=== PATIENT | male | born 1980 | race American Indian/Alaskan Native ===

== ENCOUNTER 2018-05-11 09:07 | Emergency (ER) | payer OTHER ==
[2018-05-11 09:27] VITALS: RESP 18; TEMP 98.7; O2SAT 99
--- NOTE | 2018-05-11 09:36 | ED PDOC ---
Arrival/HPI - General Chief Complaint: Upper Extremity Problem/Injury Time Seen by Provider: 05/11/18 09:31 Historian: Patient - History of Present Illness Narrative History of Present Illness (Text): 05/11/18 09:31 38 y/o male, no significant pmh, nkda, last tetanus doesn't remember, c/o rt. hand 2nd digit pain and swelling x 2 weeks. Pt. stated that he was pinch by metal plier on the rt. hand 2nd digit about 2 weeks ago, sustained rt. hand 2nd digit wound, worsening pain and swelling on the rt. hand 2nd digit, no fever or chills, no night sweat, no rash, no numbness or tingling, no palpitation, no other medical or psychological complaints. Past Medical History - Provider Review Nursing Documentation Reviewed: Yes - Infectious Disease Hx of Infectious Diseases: None - Psychiatric Hx Substance Use: Yes - Anesthesia Hx Anesthesia: No Family/Social History - Physician Review Nursing Documentation Reviewed: Yes Family/Social History: Unknown Family HX Smoking Status: Current Some Days Smoker Hx Alcohol Use: No Hx Substance Use: Yes Substance used: marijuana Allergies/Home Meds Allergies/Adverse Reactions: Allergies seasonal Allergy (Uncoded 05/11/18 09:27) CONGESTION Review of Systems - Review of Systems Constitutional: absent: Fatigue, Fevers Eyes: absent: Vision Changes ENT: absent: Hearing Changes Respiratory: absent: SOB, Cough Cardiovascular: absent: Chest Pain Gastrointestinal: absent: Abdominal Pain, Nausea, Vomiting Musculoskeletal: Arthralgias, Joint Swelling. absent: Back Pain, Neck Pain, Myalgias Skin: Abscess, Cellulitis. absent: Rash, Pruritis, Skin Lesions, Laceration, Ulcer Physical Exam Vital Signs Reviewed: Yes Vital Signs Temp Pulse Resp BP Pulse Ox 05/11/18 09:22 98.7 F 82 18 121/70 99 Temperature: Afebrile Blood Pressure: Normal Pulse: Regular Respiratory Rate: Normal Appearance: Positive for: Well-Appearing, Non-Toxic, Comfortable Pain Distress: Moderate Mental Status: Positive for: Alert and Oriented X 3 - Systems Exam Head: Present: Atraumatic, Normocephalic Pupils: Present: PERRL Extroacular Muscles: Present: EOMI Conjunctiva: Present: Normal Mouth: Present: Moist Mucous Membranes Neck: Present: Normal Range of Motion Respiratory/Chest: Present: Clear to Auscultation, Good Air Exchange. No: Respiratory Distress, Accessory Muscle Use Cardiovascular: Present: Regular Rate and Rhythm, Normal S1, S2. No: Murmurs Abdomen: No: Tenderness, Distention, Peritoneal Signs Back: Present: Normal Inspection Upper Extremity: Present: Normal Inspection, Other (Rt. hand 2nd digit: moderate swelling surround in the PIPJ, lateral aspect visible healed wound approx. 0.5cm diameter with swelling hardness and mild skin abscess approx. 2cm x 1cm with skin breaking noted with mild opening and draining abscess noted on the lateral aspect with hardened tissue, negative karnival signs, painful to flex the PIPJ but able to flex 75 percent, no limitation on extension, sensation intact, motor 5/5, +radial pulse, capillary refill< 2 seconds, neurovascular intact, there is no flexor or extensor tendon tenderness noted, negative karnival sign at this time. ). No: Cyanosis, Edema Lower Extremity: Present: Normal Inspection. No: Edema Neurological: Present: GCS=15, CN II-XII Intact, Speech Normal Skin: Present: Warm, Dry, Normal Color. No: Rashes Psychiatric: Present: Alert, Oriented x 3, Normal Insight, Normal Concentration Medical Decision Making ED Course and Treatment: 05/11/18 09:46 -labs/blood culture -CT RUE r/o deep structure abscess -IV vancomcyin/zosyn/toradol, tdap -wound irrigate with saline, clean betadine, bacitracin and gauze dressing -observe and reassess 05/11/18 12:36 -CT RUE: There is an approximately 4.1 x 1.25 cm elliptical shaped soft tissue density up within the soft tissues adjacent to the radial margin of the proximal phalanx 2nd digit extending distally just distal to the PIP joint. Findings consistent with a phlegmon. No definitive drainable fluid collection seen at this time. No obvious cortical destructive changes to suggest osteomyelitis however early osteomyelitis cannot be completely excluded based on this exam. -Labs are non-significant -I recommend the patient for admission for IV antibiotic and MRI with hand specialist/orthopedic evaluation but he refused, risks and benefits explained, pt. still wishes sign out against medical advice. -I will flush the wound superficial abscess for the patient as abscess is embedded in the skin. -Sensation intact, motor 5/5, wound irrigated with normal saline 1000cc, clean with Betadine, sterile procedure as usual, no anesthetic use, approx. 1cc of purulant yellow color abscess drained out from the dirty wound and swelling decreased, feels much better,hemostasis obtained, bacitracin apply, gauze dressing, sensation intact, motor 5/5, minimal blood loss, pt. tolerated the procedure well with no complication. Pain decreased and pt. feel much better. AMA ER The patient refuses to stay in the Emergency Room (ER) to continue the care and wishes to leave the emergency department against my medical advice. Patient was told that staying in the ER is necessary and a full explanation of the reasons why was given, and understood by the patient with alert and oriented x4. The risk of leaving were explained in laymans term and including but not limited to tenosynovitis, osteomylitis, organ failure, pain, worsening of condition, permanent disability and from an undiagnosed or untreated condition. The patient accepts these risks, and is in my judgment is competent and capable of understanding the clinical situation and explanation of the risk of leaving. The patient is able to verbally repeated me back the above explained risks and benefits back to me, and verbally expressed understanding. Patient was given the opportunity to ask questions and change mind. The patient was instructed regarding the best care for the present symptoms, and to follow up as soon as possible with the primary care doctor including specialist or return to the emergency department at any time for continuing care. You sign out against medical advice and told to stay in the ER for admission for IV antibiotic and further evaluation including orthopedic evaluation/hand specialist. you are given keflex, bactrim ds, motrin which is not the optimal care (as you declined). Follow up with an orthopedic/hand specialist and pmd within 24 hours, return to the ER for any new or worsening signs or symptoms. - Lab Interpretations Lab Results: 05/11/18 10:00 05/11/18 10:00 Lab Results 05/11/18 10:00: WBC 4.5, RBC 4.31, Hgb 14.3, Hct 41.2 L, MCV 95.6, MCH 33.2, MCHC 34.7, RDW 11.9, Plt Count 158, MPV 11.6 H, Gran % 52.3, Lymph % (Auto) 34.7 , [place] % (Auto) 9.7 H, Eos % (Auto) 2.9, Baso % (Auto) 0.4, Gran # 2.37, Lymph # (Auto) 1.6, [place] # (Auto) 0.4, Eos # (Auto) 0.1, Baso # (Auto) 0.02 05/11/18 10:00: Sodium 141, Potassium 4.5, Chloride 102, Carbon Dioxide 28, Anion Gap 15, BUN 15, Creatinine 0.8, Est GFR ( Amer) > 60, Est GFR (Non- Af Amer) > 60, Random Glucose 85, Calcium 9.6, Magnesium 2.0, Total Bilirubin 0.7, AST 28, ALT 29, Alkaline Phosphatase 61, Total Protein 7.6, Albumin 4.7, Globulin 2.9, Albumin/Globulin Ratio 1.6 I have reviewed the lab results: Yes - RAD Interpretation Radiology Orders: 05/11/18 09:37 EXT UPPER WITH CONTRAST RIGHT [CT] Stat HISTORY: rt. hand 2nd digit, plier injury x 2 weeks, abscess? COMPARISON: None available the TECHNIQUE: Contiguous helical/ transaxial sections of the right hand were obtained. Coronal and sagittal reformats were generated. This CT exam was performed using one or more of the following dose reduction techniques: Automated exposure control, adjustment of the mA and/or kV according to patient size, and/or use of iterative reconstruction technique. Radiation dose: Total DLP = 218.19 mGy-cm FINDINGS: BONES: No evidence of acute fracture nor dislocation. The osseous structures appear intact. No obvious cortical destructive changes 2nd digit. The remaining osseous structures also intact without cortical destructive changes LEFT HIP JOINT: Joint spaces preserved. No evidence of dislocation. No significant degenerative osteoarthritis. SOFT TISSUES: There is an elliptical shaped soft tissue density within the soft tissues adjacent to the radial margin proximal phalanx 2nd digit extending distally to suggest distal to the PIP joint. This most likely represents a large phlegmon measuring approximately 4.1 x 1.25 cm. No definitive drainable fluid collection identified within this suspected phlegmon. IMPRESSION: There is an approximately 4.1 x 1.25 cm elliptical shaped soft tissue density up within the soft tissues adjacent to the radial margin of the proximal phalanx 2nd digit extending distally just distal to the PIP joint. Findings consistent with a phlegmon. No definitive drainable fluid collection seen at this time. No obvious cortical destructive changes to suggest osteomyelitis however early osteomyelitis cannot be completely excluded based on this exam. Direct Customer Service Representative: Radiologist - Medication Orders Current Medication Orders: Discontinued Medications Vancomycin HCl (Vancomycin 1gm) 1 gm in 250 mls @ 167 mls/hr IVPB STAT STA PRN Reason: Protocol Stop: 05/11/18 11:06 Last Admin: 05/11/18 10:37 Dose: 167 mls/hr eMAR Start Stop Document 05/11/18 10:37 EQ (Rec: 05/11/18 10:37 EQ [id number]) Intravenous Solution Start Date 05/11/18 Start Time 10:37 Piperacillin Sod/Tazobactam Sod (Zosyn 3.375 In Ns 100ml) 100 mls @ 200 mls/hr IVPB STAT STA PRN Reason: Protocol Stop: 05/11/18 10:06 Last Admin: 05/11/18 09:49 Dose: 200 mls/hr eMAR Start Stop Document 05/11/18 09:49 EQ (Rec: 05/11/18 09:49 EQ [id number]) Intravenous Solution Start Date 05/11/18 Start Time 09:49 Ketorolac Tromethamine (Toradol) 30 mg IVP STAT STA Stop: 05/11/18 09:38 Last Admin: 05/11/18 09:49 Dose: 30 mg MAR Pain Assessment Document 05/11/18 09:49 EQ (Rec: 05/11/18 09:50 EQ [id number]) Pain Reassessment Is this a pain reassessment? No Sleep Is patient sleeping during reassessment? No IVP Administration Document 05/11/18 09:49 EQ (Rec: 05/11/18 09:50 EQ [id number]) Charges for Administration # of IVP Administrations 1 Tetanus/Reduced Diphtheria/Acell Pertussis (Boostrix Vaccine Inj) 0.5 ml IM .ONCE ONE Stop: 05/11/18 09:39 Last Admin: 05/11/18 09:49 Dose: 0.5 ml - PA / BUS STARTER / Resident Statement / has reviewed & agrees with the documentation as recorded. Disposition/Present on Arrival - Present on Arrival Any Indicators Present on Arrival: No History of DVT/PE: No History of Uncontrolled Diabetes: No Urinary Catheter: No History of Decub. Ulcer: No History Surgical Site Infection Following: None - Disposition Have Diagnosis and Disposition been Completed?: Yes Diagnosis: Cellulitis and abscess of finger, unspecified Disposition: AGAINST MEDICAL ADVICE Disposition Time: 09:48 Patient Problems: Current Active Problems Problem Status Onset Cellulitis and abscess of finger, unspecified Acute Condition: STABLE Discharge Instructions (ExitCare): Cellulitis (ED) Additional Instructions: You sign out against medical advice and told to stay in the ER for admission for IV antibiotic and further evaluation including orthopedic evaluation/hand specialist. you are given keflex, bactrim ds, motrin which is not the optimal care (as you declined). Follow up with an orthopedic/hand specialist and pmd within 24 hours, return to the ER for any new or worsening signs or symptoms. Prescriptions: Cephalexin [cephalexin] 500 mg PO QID #40 cap Ibuprofen [Motrin Tab] 600 mg PO QID PRN #30 tab PRN Reason: Other Sulfamethoxazole/Trimethoprim [Bactrim Ds Tablet] 1 each PO BID #20 tablet Referrals: Vianney Littlejohn MD [Primary Care Provider] - Follow up with primary Dariela Cullen MD [Staff Provider] - Follow up with primary Forms: WORK NOTE
[2018-05-11] MEDS ORDERED: Piperacillin/Tazobact 3.375 gm 100 ML IVPB STA (09:37)
[2018-05-11] MEDS ORDERED: Vancomycin 1gm in NS 250ml 1 GM/250 ML BAG IVPB STA (09:37)
[2018-05-11] MEDS ORDERED: TDAP Vaccine 0.5 mL Syr IM ONE (09:38)
[2018-05-11 10:22] LABS: BASO # 0.02 K/mm3 (0.0-2.0); BASO % 0.4 % (0.0-3.0); EOS # 0.1 (0.0-0.7); EOS % 2.9 % (1.5-5.0); GRAN # 2.37 (1.4-6.5); GRAN % 52.3 % (50.0-68.0); HEMOGLOBIN 14.3 g/dL (14.0-18.0); LYMPH # 1.6 (1.2-3.4); LYMPH % 34.7 % (22.0-35.0); MEAN CELL VOLUME 95.6 fl (80.0-105.0); MEAN CORPUSCULAR HEMOGLOBIN 33.2 pg (25.0-35.0); MEAN CORPUSCULAR HGB CONC 34.7 g/dl (31.0-37.0); MEAN PLATELET VOLUME 11.6 fl (7.0-11.0); MONO # 0.4 (0.1-0.6); MONO % 9.7 % (1.0-6.0); RBC 4.31 10^6/uL (3.5-6.1); RED CELL DISTRIBUTION WIDTH 11.9 % (11.5-14.5); WHITE BLOOD COUNT 4.5 10^3/ul (4.5-11.0)
[2018-05-11 10:30] LABS: ALB/GLOB RATIO 1.6 (1.1-1.8); ALBUMIN 4.7 g/dL (3.0-4.8); ALT/SGPT 29 U/L (7-56); AST/SGOT 28 U/L (17-59); BLOOD UREA NITROGEN 15 mg/dL (7-21); CALCIUM 9.6 mg/dL (8.4-10.5); GFR AFRICAN-AMERICAN > 60; GFR NON-AFRICAN AMERICAN > 60
[2018-05-11] MEDS ORDERED: Iohexol 350 MG/100 ML VIAL ONE (10:57)
--- NOTE | 2018-05-11 12:05 | CT ---
PROCEDURE: CT of the right upper extremity with attention 2nd digit HISTORY: rt. hand 2nd digit, plier injury x 2 weeks, abscess? COMPARISON: None available the TECHNIQUE: Contiguous helical/ transaxial sections of the right hand were obtained. Coronal and sagittal reformats were generated. This CT exam was performed using one or more of the following dose reduction techniques: Automated exposure control, adjustment of the mA and/or kV according to patient size, and/or use of iterative reconstruction technique. Radiation dose: Total DLP = 218.19 mGy-cm FINDINGS: BONES: No evidence of acute fracture nor dislocation. The osseous structures appear intact. No obvious cortical destructive changes 2nd digit. The remaining osseous structures also intact without cortical destructive changes LEFT HIP JOINT: Joint spaces preserved. No evidence of dislocation. No significant degenerative osteoarthritis. SOFT TISSUES: There is an elliptical shaped soft tissue density within the soft tissues adjacent to the radial margin proximal phalanx 2nd digit extending distally to suggest distal to the PIP joint. This most likely represents a large phlegmon measuring approximately 4.1 x 1.25 cm. No definitive drainable fluid collection identified within this suspected phlegmon. IMPRESSION: There is an approximately 4.1 x 1.25 cm elliptical shaped soft tissue density up within the soft tissues adjacent to the radial margin of the proximal phalanx 2nd digit extending distally just distal to the PIP joint. Findings consistent with a phlegmon. No definitive drainable fluid collection seen at this time. No obvious cortical destructive changes to suggest osteomyelitis however early osteomyelitis cannot be completely excluded based on this exam.
[2018-05-11 13:11] VITALS: BP 118/71; PULSE 79
== END 2018-05-11 13:10 | disposition left against medical advice (07) ==
LOC: ED 09:07
DX: L03.011 Cellulitis of right finger (principal); L02.511 Cutaneous abscess of right hand; Z23 Encounter for immunization
CPT/HCPCS: 73201; 80053; 83735; 85025; 87040; 90471; 90715; 96374; 99284; J1885; J2543; Q9967